=== PATIENT | female | born 1955 | race African-American/Black ===

== ENCOUNTER 2016-10-04 10:54 | Emergency (ER) | payer OTHER ==
[~2016-10-04] VITALS: Ht 160 cm; Wt 123.6 kg
[~2016-10-04 10:54] MED LIST: ALEVE 220MG220 MG PO; ASPIRIN E.C. 8181 MG PO; CELEBREX200 MG PO; COUMADIN5 MG PO; DARVOCET N 101 UDTAB PO; FOLIC ACID 40400 MCG PO; IRON TABLETS325 MG PO; MICARDIS HCT 251 TAB PO; NEXIUM 20MG CAP20 MG PO; NORCO 325 MG-7.1 TAB PO; VITAMIN C PO; VITAMIN D32000 IU PO
[2016-10-04 10:56] VITALS: TEMP 98.2
[2016-10-04] MEDS ORDERED: VITAMIN C500 MG PO (11:06)
[2016-10-04] MEDS ORDERED: NEURONTIN800 MG/TAB PO (11:07)
[2016-10-04] MEDS ORDERED: PREDFORTE5ML OS (11:07)
[2016-10-04] MEDS ORDERED: NORCO 325 MG-51 TAB PO (11:54)
[2016-10-04 12:20] VITALS: BP 116/65; PULSE 77
== END 2016-10-04 12:25 | disposition home or self-care (01) ==
LOC: COL.ER 10:54
DX: M54.2 Cervicalgia (principal); M25.512 Pain in left shoulder

== ENCOUNTER → 2016-11-30 | Outpatient (CLI) | payer OTHER ==
[~2016-11-30] MED LIST changes: +NEURONTIN800 MG/TAB PO; +NORCO 325 MG-51 TAB PO; +PREDFORTE5ML OS; +VITAMIN C500 MG PO
== END ==
LOC: COL.RAD 09:05
DX: R20.2 Paresthesia of skin (principal); M25.78 Osteophyte, vertebrae; M50.321 Other cervical disc degeneration at C4-C5 level; M17.0 Bilateral primary osteoarthritis of knee; I10 Essential (primary) hypertension

== ENCOUNTER → 2022-02-19 | Outpatient (CLI) | payer MEDICARE, OTHER | LOC: COL.RAD 12:42 | DX: N18.2 Chronic kidney disease, stage 2 (mild) (principal); N13.30 Unspecified hydronephrosis ==

== ENCOUNTER 2024-03-22 11:00 | Outpatient (RCR) | payer MEDICARE, OTHER | END 2024-03-26 | LOC: WSPT | DX: M17.11 Unilateral primary osteoarthritis, right knee (principal) ==

== ENCOUNTER 2024-06-01 13:21 | Outpatient (RCR) | payer MEDICARE, OTHER | END 2024-06-26 | disposition home or self-care (01) | LOC: WSPT | DX: M17.11 Unilateral primary osteoarthritis, right knee (principal) ==